=== PATIENT | female | born 1965 | race African-American/Black ===

== ENCOUNTER 2016-08-29 10:47 | Emergency (ER) | payer MEDICAID ==
[~2016-08-29] VITALS: Ht 167.6 cm; Wt 79.5 kg
[~2016-08-29 10:47] MED LIST: ALBU6.7H INH; CALC-137 PO; FOLI1 PO; HYDR200T3 PO; LEVA500T PO; METH2.5 PO; NAPR500 PO; PERC5TAB12 PO; PRED50 PO; PRED5TAB PO
[2016-08-29 10:49] VITALS: BP 160/90; PULSE 95; RESP 20; TEMP 98.6; O2SAT 96
--- NOTE | 2016-08-29 11:39 | RADRPT ---
EXAM DATE/TIME: 08/29/2016 11:11 [facility] COMPARISON: CHEST SINGLE AP, September 17, 2015, 5:52. INDICATIONS: Left side chest pain. MEDICAL HISTORY: None. SURGICAL HISTORY: None. ENCOUNTER: Initial ACUITY: 3 days PAIN SCORE: 10/10 LOCATION: Bilateral chest FINDINGS: Very minimal bibasilar parenchymal changes worse on the left than the right. The ones on the left hernandez ve progressed in the interval. Heart and pulmonary vascularity are normal. Portion of bony skeleton visualized unremarkable. CONCLUSION: Interval increase in bibasilar parenchymal changes. Some of this has the appearance of chronic fibro sis. Correlation is suggested. Juan Aguero MD FACR on August 29, 2016 at 11:18 Board Certified Radiologist. This report was verified electronically.
[2016-08-29 13:32] LABS: AUTOMATED NEUTROPHIL # 5.7 TH/MM3 (1.8-7.7); BASOPHIL % 0.4 % (0.0-2.0); EOSINOPHIL % 0.3 % (0.0-4.0); HEMATOCRIT 35.2 % (35.0-46.0); HEMO FLAGS DIFF FINAL; LYMPH % 17.8 % (9.0-44.0); LYMPHOCYTE # 1.3 TH/MM3 (1.0-4.8); MEAN CORPUSCULAR HGB CONC 34.2 % (32.0-36.0); MONO % 5.8 % (0.0-8.0); NEUT % 75.7 % (16.0-70.0); PLATELET COUNT 273 TH/MM3 (150-450); RED BLOOD COUNT 4.29 MIL/MM3 (4.00-5.30); RED CELL DISTRIBUTION WIDTH 18.1 % (11.6-17.2); WHITE BLOOD COUNT 7.5 TH/MM3 (4.0-11.0)
[2016-08-29 13:59] LABS: ANION GAP 5 MEQ/L (5-15); BICARBONATE 26.6 MEQ/L (21.0-32.0); BLOOD UREA NITROGEN 10 MG/DL (7-18); CHLORIDE 107 MEQ/L (98-107); GLOMERULAR FILTRATION RATE 74 ML/MIN (>89); POTASSIUM 4.1 MEQ/L (3.5-5.1); SODIUM (NA) 139 MEQ/L (136-145)
[2016-08-29 14:02] LABS: CREATINE KINASE 132 U/L (26-192)
[2016-08-29 14:14] LABS: CKMB LESS THAN 0.5 NG/ML (0.5-3.6)
[2016-08-29 15:50] VITALS: BP 146/68; PULSE 89; RESP 20; O2SAT 96
--- NOTE | 2016-08-29 16:21 | PD ---
HPI Chief Complaint: Chest Pain Time Seen by Provider: 16:21 Travel History International Travel<30 days: No Contact w/Intl Traveler<30days: No Traveled to known affect area: No History of Present Illness HPI 51-year-old female with history of RA, COPD presents to the ED for evaluation of 2 day history of left-sided chest pain, rated 9/10. Described as constant, worsened by motion of the left arm. Patient denies associated palpitations, SOB , diaphoresis, nausea or vomiting, trauma to the chest or over use of the left arm. Patient endorses chronic, nonproductive cough. She also complains of dental pain. She states that she has had problems with an upper back tooth for weeks but over the last few days it has gotten worse. Denies fever, chills, difficulty swallowing secretions, abdominal pain, nausea, vomiting, dysuria. Patient is a current smoker. PFSH Past Medical History Respiratory: Yes (copd) ?: Not Social History Tobacco Use: Yes Allergies-Medications (Allergen,Severity, Reaction): Coded Allergies: Ibuprofen (Verified Allergy, Severe, Hives, 08/29/16) Reported Meds & Prescriptions Reported Meds & Active Scripts Active Clindamycin (Clindamycin HCl) 300 Mg Cap 300 Mg PO TID Medrol Dosepak (Methylprednisolone) 4 Mg Dspk 4 Mg PO DIRECTED Per Pharmacist direction Nebulizer 1 Mis Mis 1 Ea .ROUTE DIRECTED Nebulizer/Adult Mask (N/A) 1 Kit Kit 1 Kit .ROUTE DIRECTED Albuterol Neb (Albuterol Sulfate) 2.5 Mg/3 Ml Neb 2.5 Mg NEB TID NEB PRN Reported Folate (Folic Acid) 1 Mg Tab 1 Mg PO DAILY Hydroxychloroquine (Hydroxychloroquine Sulfate) 200 Mg Tab 200 Mg PO DAILY Takw with food Prednisone 5 Mg Tab 5 Mg PO BID Oxycodone-Acetaminophen 5-325 mg Tab 1-2 Tab PO Q6H PRN Methotrexate 2.5 Mg Tab 2.5 Mg PO Q7D Review of Systems Except as stated in HPI: all other systems reviewed are Neg Physical Exam Narrative GENERAL: Well-nourished, well-developed and nontoxic-appearing black female in no acute distress. SKIN: Warm and dry. HEAD: Normocephalic. EYES: No scleral icterus. No injection or drainage. ENT: Pearly hardy tympanic membranes bilaterally. Nasal mucosa pink and moist. Oropharynx without erythema, edema or exudate. Uvula midline. Airway patent. The lower palate is soft. DENTAL: Multiple loose, missing and chipped teeth. No malocclusion. Tooth #14 has a large dental caries. The surrounding gingiva is pale, tender. NECK: Supple, trachea midline. No JVD or lymphadenopathy. CARDIOVASCULAR: Regular rate and rhythm without murmurs, gallops, or rubs. 2+ DP and radial pulses bilaterally. Tender to palpation over the left sided precordium. RESPIRATORY: Breath sounds clear and equal bilaterally. No accessory muscle use. GASTROINTESTINAL: Abdomen soft, non-tender, nondistended. Active bowel sounds. MUSCULOSKELETAL: No cyanosis, or edema. The patient is ambulatory, mostly extremities spontaneously. Range of motion of the left arm elicits pain in the chest. BACK: Nontender without obvious deformity. No CVA tenderness. Data Data Last Documented VS Vital Signs Date Time Temp Pulse Resp B/P Pulse Ox O2 Delivery O2 Flow Rate FiO2 08/29/16 17:48 88 22 145/87 96 08/29/16 15:50 Room Air 08/29/16 10:49 98.6 Orders Electrocardiogram (08/29/16 ) Complete Blood Count With Diff (08/29/16 10:56) Basic Metabolic Panel (Bmp) (08/29/16 10:56) Ckmb (Isoenzyme) Profile (08/29/16 10:56) Troponin I (08/29/16 10:56) Chest, Single Ap (08/29/16 10:56) CKMB (08/29/16 12:45) CKMB% (08/29/16 12:45) Labs Laboratory Tests Test 08/29/16 12:45 White Blood Count 7.5 TH/MM3 Red Blood Count 4.29 MIL/MM3 Hemoglobin 12.0 GM/DL Hematocrit 35.2 % Mean Corpuscular Volume 82.0 FL Mean Corpuscular Hemoglobin 28.0 PG Mean Corpuscular Hemoglobin 34.2 % Concent Red Cell Distribution Width 18.1 % Platelet Count 273 TH/MM3 Mean Platelet Volume 8.4 FL Neutrophils (%) (Auto) 75.7 % Lymphocytes (%) (Auto) 17.8 % Monocytes (%) (Auto) 5.8 % Eosinophils (%) (Auto) 0.3 % Basophils (%) (Auto) 0.4 % Neutrophils # (Auto) 5.7 TH/MM3 Lymphocytes # (Auto) 1.3 TH/MM3 Monocytes # (Auto) 0.4 TH/MM3 Eosinophils # (Auto) 0.0 TH/MM3 Basophils # (Auto) 0.0 TH/MM3 CBC Comment DIFF FINAL Differential Comment Sodium Level 139 MEQ/L Potassium Level 4.1 MEQ/L Chloride Level 107 MEQ/L Carbon Dioxide Level 26.6 MEQ/L Anion Gap 5 MEQ/L Blood Urea Nitrogen 10 MG/DL Creatinine 0.97 MG/DL Estimat Glomerular Filtration 74 ML/MIN Rate Random Glucose 95 MG/DL Calcium Level 8.7 MG/DL Total Creatine Kinase 132 U/L Creatine Kinase MB LESS THAN 0.5 NG/ML Troponin I LESS THAN 0.02 NG/ML MDM Medical Decision Making Medical Screen Exam Complete: Yes Emergency Medical Condition: Yes Interpretation(s) EKG rate 72, sinus rhythm. AR interval 142, QRS 96, QTC 43. Normal axis. No ischemic changes. Reviewed by Dr. Abernathy. Differential Diagnosis Muscle strain versus musculoskeletal pain versus dentalgia versus dental abscess versus dental caries versus COPD exacerbation versus less likely angina versus ACS versus other Narrative Course 51-year-old female with history of RA, COPD presents to the ED for evaluation of 2 day history of left-sided chest pain, rated 9/10. Described as constant, worsened by motion of the left arm. Patient endorses chronic, nonproductive cough. Patient denies associated palpitations, SOB, diaphoresis, nausea or vomiting, trauma to the chest or over use of the left arm. She also complains of weeks long history of dental pain, worsened over the last few days. Denies fever, chills, difficulty swallowing secretions, abdominal pain, nausea, vomiting, dysuria. Patient is a current smoker. Vitals reviewed. Physical exam reveals a nontoxic-appearing black female in no acute distress. Chest is clear to auscultation bilaterally. Tender to palpation over the left precordium. Range of motion of the left arm elicits chest pain. Abdominal exam benign. Equal pulses in the extremities. No lower extremity edema. Labs , EKG, x-ray were ordered in triage. CBC: WBC 7.5. Hemoglobin 12.0. CMP: Unremarkable. Cardiac enzymes: Negative CXR: Chronic fibrosis per radiology read. EKG: as above, regular rate, sinus rhythm. No ischemic changes. I discussed the patient, workup and plan of care with Dr. Abernathy who saw the patient and agrees. This chest pain is reproducible, likely musculoskeletal/ costochondritis. Patient was provided with prescription for a nebulizer, mask, albuterol treatments, Medrol Dosepak, and clindamycin. She was cautioned to take all antibiotics, even if her dental pain resolves, follow up with a dentist for definitive treatment of her dental pain. We discussed proper use of nebulizer treatments, I stressed the importance of follow-up with her primary care provider. She indicated understanding of the instructions, is amenable to plan of care. This patient is stable and discharged home. Diagnosis Primary Impression: Musculoskeletal chest pain Additional Impressions: Dentalgia COPD exacerbation Referrals: Primary Care Physician Patient Instructions: Dental Caries (ED), General Instructions, Musculoskeletal Pain (ED) Additional Instructions: Rest, hydrate. Take steroids as prescribed. Take antibiotics as prescribed, even if tooth pain resolves. Albuterol treatments as needed for wheezing, shortness of breath. Follow-up with the dentist for treatment of the affected tooth. Follow-up with Dr. Lopez as discussed. Return to the ED for any urgent or emergent medical condition. Med/Other Pt SpecificInfo: Prescription(s) given Scripts Clindamycin 300 Mg [id number] Mg PO TID #21 CAP Ref 0 Prov:Karen Abernathy MD 08/29/16 Methylprednisolone Dosepak (Medrol Dosepak)4 Mg Dspk4 Mg PO DIRECTED #1 DSPK Ref 0 Per Pharmacist direction Prov:Karen Abernathy MD 08/29/16 Nebulizer 1 Mis Mis #1 EA .ROUTE DIRECTED Ref 0 Prov:Karen Abernathy MD 08/29/16 Nebulizer/Adult Mask 1 Kit Kit #1 KIT .ROUTE DIRECTED Ref 0 Prov:Karen Abernathy MD 08/29/16 Albuterol Neb 2.5 Mg/3 Ml Neb2.5 Mg NEB TID NEB PRN (SHORTNESS OF BREATH) #60 NEBULE Ref 0 Prov:Karen Abernathy MD 08/29/16 Disposition: 01 DISCHARGE HOME Condition: Stable Regina Lugo Aug 29, 2016 16:21
[2016-08-29] MEDS ORDERED: OXYC1TAB63 PO (16:46)
[2016-08-29] MEDS ORDERED: PRED5TAB PO (16:46)
[2016-08-29] MEDS ORDERED: HYDR200T3 PO (16:46)
[2016-08-29] MEDS ORDERED: FOLI1TAB4 PO (16:46)
[2016-08-29] MEDS ORDERED: METH2.5T PO (16:46)
[2016-08-29] MEDS ORDERED: NEBULIZER/ADULT1 KIT (17:20)
[2016-08-29] MEDS ORDERED: CLIN1CAP6 PO (17:20)
[2016-08-29] MEDS ORDERED: ALBU0.08 NEB (17:20)
[2016-08-29] MEDS ORDERED: MEDR4PAK PO (17:20)
[2016-08-29] MEDS ORDERED: NEBULIZER1 MI1 (17:20)
--- NOTE | 2016-08-29 17:28 | PD ---
Data Data Last Documented VS Vital Signs Date Time Temp Pulse Resp B/P Pulse Ox O2 Delivery O2 Flow Rate FiO2 08/29/16 10:49 98.6 95 20 160/90 96 Orders Electrocardiogram (08/29/16 ) Complete Blood Count With Diff (08/29/16 10:56) Basic Metabolic Panel (Bmp) (08/29/16 10:56) Ckmb (Isoenzyme) Profile (08/29/16 10:56) Troponin I (08/29/16 10:56) Chest, Single Ap (08/29/16 10:56) CKMB (08/29/16 12:45) CKMB% (08/29/16 12:45) Labs Laboratory Tests Test 08/29/16 12:45 White Blood Count 7.5 TH/MM3 Red Blood Count 4.29 MIL/MM3 Hemoglobin 12.0 GM/DL Hematocrit 35.2 % Mean Corpuscular Volume 82.0 FL Mean Corpuscular Hemoglobin 28.0 PG Mean Corpuscular Hemoglobin 34.2 % Concent Red Cell Distribution Width 18.1 % Platelet Count 273 TH/MM3 Mean Platelet Volume 8.4 FL Neutrophils (%) (Auto) 75.7 % Lymphocytes (%) (Auto) 17.8 % Monocytes (%) (Auto) 5.8 % Eosinophils (%) (Auto) 0.3 % Basophils (%) (Auto) 0.4 % Neutrophils # (Auto) 5.7 TH/MM3 Lymphocytes # (Auto) 1.3 TH/MM3 Monocytes # (Auto) 0.4 TH/MM3 Eosinophils # (Auto) 0.0 TH/MM3 Basophils # (Auto) 0.0 TH/MM3 CBC Comment DIFF FINAL Differential Comment Sodium Level 139 MEQ/L Potassium Level 4.1 MEQ/L Chloride Level 107 MEQ/L Carbon Dioxide Level 26.6 MEQ/L Anion Gap 5 MEQ/L Blood Urea Nitrogen 10 MG/DL Creatinine 0.97 MG/DL Estimat Glomerular Filtration 74 ML/MIN Rate Random Glucose 95 MG/DL Calcium Level 8.7 MG/DL Total Creatine Kinase 132 U/L Creatine Kinase MB LESS THAN 0.5 NG/ML Troponin I LESS THAN 0.02 NG/ML MDM Supervised Visit with MARY: Yes Narrative Course I, Dr. Abernathy, have reviewed the advance practice practioner's documentation and am in agreement, met with the patient face to face, made the diagnosis, and the medical decision making was done by me. *My assessment and Findings: 51-year-old female with history of COPD, rheumatoid arthritis here with 2 days of left-sided sharp chest pain made worse with cough, palpation. Recent increasing cough, chest congestion. No documented fevers or chills. Incidentally also has dental pain. Her chest pain is easily reproducible on the left sternal margin on exam. Minimal wheezing. My strong suspicion is for COPD exacerbation, viral syndrome with associated costochondritis and chest wall pain. Less likely ACS, PE, GERD or dissection. Her EKG and laboratory workup that was unremarkable. Patient will be treated with steroids and albuterol for her COPD exacerbation, antibiotics for dental general be discharged home. Diagnosis Primary Impression: Musculoskeletal chest pain Additional Impressions: Dentalgia COPD exacerbation Referrals: Primary Care Physician Patient Instructions: General Instructions, Dental Caries (ED), Musculoskeletal Pain (ED) Departure Forms: Tests/Procedures Additional Instruction: Rest, hydrate. Take steroids as prescribed. Take antibiotics as prescribed, even if tooth pain resolves. Albuterol treatments as needed for wheezing, shortness of breath. Follow-up with the dentist for treatment of the affected tooth. Follow-up with Dr. Lopez as discussed. Return to the ED for any urgent or emergent medical condition. Scripts Clindamycin 300 Mg [id number] Mg PO TID #21 CAP Ref 0 Prov:Karen Abernathy MD 08/29/16 Methylprednisolone Dosepak (Medrol Dosepak)4 Mg Dspk4 Mg PO DIRECTED #1 DSPK Ref 0 Per Pharmacist direction Prov:Karen Abernathy MD 08/29/16 Nebulizer 1 Mis Mis #1 EA .ROUTE DIRECTED Ref 0 Prov:Karen Abernathy MD 08/29/16 Nebulizer/Adult Mask 1 Kit Kit #1 KIT .ROUTE DIRECTED Ref 0 Prov:Karen Abernathy MD 08/29/16 Albuterol Neb 2.5 Mg/3 Ml Neb2.5 Mg NEB TID NEB PRN (SHORTNESS OF BREATH) #60 NEBULE Ref 0 Prov:Karen Abernathy MD 08/29/16 Disposition: 01 DISCHARGE HOME Condition: Stable Karen Abernathy MD Aug 29, 2016 17:28
[2016-08-29 17:48] VITALS: BP 145/87
--- NOTE | 2016-08-29 22:33 | EKG ---
Date Performed: 08/29/2016 Time Performed: 11:30:06 PTAGE: 51 years EKG: Sinus rhythm NONSPECIFIC T-WAVE ABNORMALITY BORDERLINE ECG PREVIOUS TRACING : 09/17/2015 05.12 DOCTOR: Kwadwo Mabry Interpretating Date/Time 08/29/2016 22:31:56
[2016-09-24] MEDS ORDERED: OMEP20TA PO (09:33)
[2016-09-24] MEDS ORDERED: PARO12.5 PO (10:10)
[2016-09-24] MEDS ORDERED: ALBUAER3 INH ×2 (10:14→10:15)
[2016-09-25] MEDS ORDERED: PARO1TAB71 PO (09:08)
[2016-11-19] MEDS ORDERED: PARO1TAB71 PO (07:53)
== END 2016-08-29 17:50 | disposition home or self-care (01) ==
LOC: NETRI 10:47
DX: R07.89 Other chest pain (principal); J44.1 Chronic obstructive pulmonary disease with (acute) exacerbation; K08.89 Other specified disorders of teeth and supporting structures; R05 Cough; R94.31 Abnormal electrocardiogram [ECG] [EKG]
CPT/HCPCS: 71010; 80048; 82550; 82552; 84484; 85025; 93005

== ENCOUNTER 2017-03-17 08:45 | Emergency (ER) | payer MEDICAID ==
[~2017-03-17] VITALS: Ht 165.1 cm; Wt 77.0 kg
[~2017-03-17 08:45] MED LIST changes: +ALBU0.08 NEB; -ALBU6.7H INH; +ALBUAER3 INH; -CALC-137 PO; -FOLI1 PO; +FOLI1TAB4 PO; -LEVA500T PO; -METH2.5 PO; +METH2.5T PO; -NAPR500 PO; +NEBULIZER/ADULT1 KIT; +NEBULIZER1 MI1; +OMEP20TA PO; +OXYC1TAB63 PO; +PARO1TAB71 PO; -PERC5TAB12 PO; -PRED50 PO
[2017-03-17 08:56] VITALS: BP 170/96; PULSE 88; RESP 15; TEMP 97.8; O2SAT 99
[2017-03-17] MEDS ORDERED: XARE10TA PO (10:40)
[2017-03-17] MEDS ORDERED: RESP: ALBUTEROL 2.5 MG/IPRATROPIUM 0.5 MG NEB (SCH) INH ONE (10:45)
[2017-03-17] MEDS ORDERED: predniSONE 20 MG TAB PO ONE (10:45)
--- NOTE | 2017-03-17 10:45 | PD ---
HPI Chief Complaint: Cold / Flu Symptoms Time Seen by Provider: 10:45 Travel History International Travel<30 days: No Contact w/Intl Traveler<30days: No Traveled to known affect area: No History of Present Illness HPI 51-year-old female presents emergency Department via [facility] with complaint of cough 1 week. Has history of asthma and has been using her nebulizer and inhalers with relief of her shortness of breath. Last use her treatment this morning. Reports chest pain only when she coughs. Otherwise denies chest pain. Says she feels a little short of breath now. Denies hemoptysis. Denies nasal congestion, sore throat, ear pain. Denies fever, vomiting. Reports history of pneumonia and is concerned she has pneumonia. Allergies to ibuprofen. Has no other medical complaints. Symptoms are mild in severity. No other modifying factors or associated signs and symptoms. PFSH Past Medical History Arthritis: Yes COPD: Yes Diminished Hearing: No Medical other: Yes (RA) Respiratory: Yes (copd) ?: Not LMP: 03/2017 Past Surgical History Surgical History: No Previous Surgery Social History Alcohol Use: No Tobacco Use: Yes Substance Use: No Allergies-Medications (Allergen,Severity, Reaction): Coded Allergies: Ibuprofen (Verified Allergy, Severe, Hives, 03/17/17) Reported Meds & Prescriptions Reported Meds & Active Scripts Active Prednisone 20 Mg Tab 40 Mg PO DAILY 4 Days start 03/18/2017 Azithromycin 500 Mg Tab 500 Mg PO DAILY Proair Hfa 8.5 GM Inh (Albuterol Sulfate) 90 Mcg/Act Aer 1 Puff INH Q4H PRN 108 mcg/actuation Reported Xarelto (Rivaroxaban) 10 Mg Tab 10 Mg PO DAILY Prednisone 5 Mg Tab 5 Mg PO BID Oxycodone-Acetaminophen 5-325 mg Tab 1-2 Tab PO Q6H PRN Review of Systems Except as stated in HPI: all other systems reviewed are Neg Physical Exam Narrative GENERAL: Well-nourished, well-developed female patient, in no acute distress; afebrile, nontoxic-appearing SKIN: Warm and dry. HEAD: Atraumatic. Normocephalic. EYES: Pupils equal and round. No scleral icterus. No injection or drainage. ENT: Mucosa pink and moist. No erythema or exudates. No uvular edema. No uvular , palatal, or tonsillar deviation. Airway patent. Nares without nasal blood, purulent drainage or septal hematoma. EARS: Bilateral pinnae and external canals appear within normal limits. Bilateral tympanic membranes without erythema, dullness or perforation. NECK: Trachea midline. No lymphadenopathy. CARDIOVASCULAR: Regular rate and rhythm. No murmur appreciated. RESPIRATORY: No accessory muscle use. Lungs clear throughout to auscultation with decreased lung sounds at bilateral bases. Breath sounds equal bilaterally. No retractions or tachypnea. No Audible wheezing noted. GASTROINTESTINAL: Abdomen soft, non-tender, nondistended. Hepatic and splenic margins not palpable. Bowel sounds are active 4 quadrants. MUSCULOSKELETAL: No obvious deformities. No clubbing. No cyanosis. No edema. NEUROLOGICAL: Awake and alert. Oriented 3. No obvious cranial nerve deficits. Motor grossly within normal limits. Normal speech. Moves all extremities. 5/5 strength to all extremities. PSYCHIATRIC: Appropriate mood and affect; insight and judgment normal. Data Data Last Documented VS Vital Signs Date Time Temp Pulse Resp B/P Pulse Ox O2 Delivery O2 Flow Rate FiO2 03/17/17 08:56 97.8 88 15 170/96 99 Orders Prednisone (Deltasone) (03/17/17 10:45) Albuterol-Ipratropium Neb (Duoneb Neb) (03/17/17 10:45) Chest, Pa & Lat (03/17/17 10:44) MDM Medical Decision Making Medical Screen Exam Complete: Yes Emergency Medical Condition: Yes Medical Record Reviewed: Yes Differential Diagnosis Bronchitis, asthma exacerbation, pneumonia Narrative Course 51-year-old female with cough 1 week. Arrived via [facility]. History of asthma. Patient is in no acute distress without retractions or tachypnea. Lung sounds are clear and equal with decreased lung sounds in bilateral bases. No audible wheezing or wheezing on auscultation of the lungs. Oxygen saturation is 99% on room air. History of pneumonia so I will obtain a chest x-ray to rule out. DuoNeb, prednisone, chest x-ray ordered. Chest x-ray concludes: Last 24 hours Impressions Chest X-Ray 03/17/17 1044 Signed Impressions: Service Date/Time: Friday, March 17, 2017 11:26 - CONCLUSION: Severe progressing interstitial lung disease most characteristic of pulmonary fibrosis. Mild acute underlying process would be difficult to exclude. Paul Campos MD Chest x-ray report was discussed with the patient and the patient was provided a copy of the report. Patient reports history of COPD at this time also. Instructed patient to follow up with airplane mechanic. Azithromycin, Deltasone prescribed for home. The patient says she has plenty of nebulizer and inhalers and does not need a refill. Instructed patient to follow up with primary care provider. Patient verbalizes understanding and agreement with treatment plan. Patient is medically cleared and stable for discharge. Discussed reasons to return to the emergency department. Patient agrees with treatment plan. The patients vital signs are stable and the patient is stable for outpatient follow- up and treatment. Patient discharged home, stable and in no acute distress. Diagnosis Primary Impression: Asthma exacerbation Referrals: Primary Care Physician Director Group Sales Patient Instructions: Asthma (ED), General Instructions Departure Forms: Tests/Procedures, Work Release Enter return to work date: Mar 18, 2017 Additional Instructions: Use albuterol inhaler as needed for shortness of breath and/or wheezing Take oral steroids as prescribed and complete full course Avoid asthma triggers such as smoking cigarettes, second hand smoke, dust, known allergens Follow-up with primary care provider Return to emergency department immediately with worsening of symptoms Med/Other Pt SpecificInfo: Prescription(s) given Scripts Prednisone 20 Mg Tab40 Mg PO DAILY 4 Days Ref 0 start 03/18/2017 Prov:Es Montejo 03/17/17 Azithromycin 500 Mg [id number] Mg PO DAILY #5 TAB Ref 0 Prov:Es Montejo 03/17/17 Disposition: 01 DISCHARGE HOME Condition: Stable Es Montejo Mar 17, 2017 10:45
--- NOTE | 2017-03-17 12:05 | RADRPT ---
EXAM DATE/TIME: 03/17/2017 11:26 [facility] COMPARISON: CHEST PA & LAT, May 19, 2015, 8:45. INDICATIONS : Cough and discolored sputum for 1 week. MEDICAL HISTORY : None. SURGICAL HISTORY : None. ENCOUNTER: Initial ACUITY: 1 week PAIN SCORE: 4/10 LOCATION: Bilateral upper chest FINDINGS: Extensive interstitial lung disease is noted. There is been significant progression since the previou s study in 2014. There are no consolidating infiltrates, pleural effusions or mass densities. Heart and mediastinal structures are stable. CONCLUSION: Severe progressing interstitial lung disease most characteristic of pulmonary fibrosis. Mild acute underlying process would be difficult to exclude. Paul Campos MD on March 17, 2017 at 12:02 Board Certified Radiologist. This report was verified electronically.
[2017-03-17] MEDS ORDERED: PRED20 PO (12:15)
[2017-03-17] MEDS ORDERED: AZIT500T2 PO (12:15)
== END 2017-03-17 13:00 | disposition home or self-care (01) ==
LOC: NEPK 08:45
DX: J44.9 Chronic obstructive pulmonary disease, unspecified (principal); J45.901 Unspecified asthma with (acute) exacerbation; M06.9 Rheumatoid arthritis, unspecified; Z72.0 Tobacco use
CPT/HCPCS: 71020; 94664; 99284; J7512

== ENCOUNTER → 2017-07-08 | Outpatient (CLI) | payer MEDICAID ==
[~2017-07-08] MED LIST changes: -ALBU0.08 NEB; +AZIT500T2 PO; -FOLI1TAB4 PO; -HYDR200T3 PO; -METH2.5T PO; -NEBULIZER/ADULT1 KIT; -NEBULIZER1 MI1; -OMEP20TA PO; -PARO1TAB71 PO; +PRED20 PO; +XARE10TA PO
[2017-07-08 10:39] LABS: BLOOD GAS BASE EXCESS -2.9 mmol/L (-2-2); BLOOD GAS CARBOXYHEMOGLOBIN 3.7 % (0-4); BLOOD GAS HCO3 21 mmol/L (22-26); BLOOD GAS METHEMOGLOBIN 1.2 % (0-2); BLOOD GAS O2 HGB SATURATION 93 % (90-100); BLOOD GAS PCO2 37 mmHg (38-42); BLOOD GAS PO2 105 mmHg (61-120); BLOOD GAS TOTAL HGB 13.8 G/DL (12.0-16.0); CRITICAL VALUE NO; DRAW SITE RT RADIAL; FIO2 21 %; NUMBER OF ARTERIAL PUNCTURES 1; STAT NO; TEMP CORR TO 98.6; ULNAR PULSE PRESENT
--- NOTE | 2017-07-08 11:29 | RADRPT ---
EXAM DATE/TIME: 07/08/2017 11:02 [facility] COMPARISON: CHEST SINGLE AP, August 29, 2016, 11:11. CHEST SINGLE AP, September 17, 2015, 5:52. CHEST PA & LAT, March 17, 2017, 11:26. INDICATIONS : COPD. Pulmonary study. MEDICAL HISTORY : Chronic obstructive pulmonary disease. SURGICAL HISTORY : None. ENCOUNTER: Subsequent ACUITY: 3 days PAIN SCORE: 0/10 LOCATION: Bilateral chest FINDINGS: PA and lateral views of the chest show chronic interstitial changes particularly within the lung base s. No intra-alveolar infiltrates. No effusions. Heart is normal in size. A mild scoliotic curvature t o the spine. CONCLUSION: 1. Chronic interstitial changes. 2. No acute abnormality. Antony Mcgraw Jr., MD on July 08, 2017 at 11:26 Board Certified Radiologist. This report was verified electronically.
--- NOTE | 2017-07-13 09:48 | RSPPFT ---
DATE OF PROCEDURE: 07/08/17 COMMENTS: Spirometry with FVC of 2.4, FEV1 of 1.9, FEV1/FVC ratio at 79%. TLC is 73% of predicted. Diffusion capacity is 62%. Rom air arterial blood gases show pH of 7.38, PCO2 of 37, PO2 of 105. IMPRESSION: 1. Mild airways restriction. 2. No evidence of airways obstruction. 3. Non-significant response to acutely inhaled bronchodilator. 4. Moderate reduction in diffusion capacity. 5. Adequate oxygenation and alveolar ventilation.
== END ==
LOC: HRSP 09:55
PROVIDERS: ATTEND Internal Medicine Sleep Medicine
DX: R06.89 Other abnormalities of breathing (principal)
CPT/HCPCS: 36600; 71020; 82805; 94060; 94726; 94729